=== PATIENT | female | born 1965 | race Caucasian/White ===

== ENCOUNTER → 2017-07-26 | Outpatient (CLI) | payer BC ==
--- NOTE | 2017-07-28 07:07 | MM ---
Reason for exam: screening (asymptomatic). Last mammogram was performed 3 years and 4 months ago. History: Taking hormonal contraceptives for 7 years 3 months beginning at age 41. Physical Findings: A clinical breast exam by your physician is recommended on an annual basis and results should be correlated with mammographic findings. MG Screening Mammo w CAD Bilateral CC and MLO view(s) were taken. Prior study comparison: March 26, 2014, bilateral MG screening mammo w CAD. March 08, 2011, bilateral digital screening mammo w/CAD. There are scattered fibroglandular densities. No significant changes when compared with prior studies. ASSESSMENT: Benign, BI-RAD 2 RECOMMENDATION: Routine screening mammogram of both breasts in 1 year.
== END | disposition home or self-care (01) ==
LOC: RADMAMWWP 16:22
PROVIDERS: ATTEND Obstetrics & Gynecology
DX: Z12.31 Encounter for screening mammogram for malignant neoplasm of breast (principal)
CPT/HCPCS: 77067

== ENCOUNTER → 2021-03-01 | Outpatient (CLI) | payer BC ==
--- NOTE | 2021-03-03 09:31 | MM ---
Reason for exam: screening (asymptomatic). Last mammogram was performed 3 years and 7 months ago. History: Taking hormonal contraceptives for 7 years 3 months beginning at age 41. Physical Findings: A clinical breast exam by your physician is recommended on an annual basis and results should be correlated with mammographic findings. MG Screening Mammo w CAD Bilateral CC and MLO view(s) were taken. Prior study comparison: July 26, 2017, bilateral MG screening mammo w CAD. March 26, 2014, bilateral MG screening mammo w CAD. There are scattered fibroglandular densities. No significant changes when compared with prior studies. ASSESSMENT: Negative, BI-RAD 1 RECOMMENDATION: Routine screening mammogram of both breasts in 1 year.
== END | disposition home or self-care (01) ==
LOC: RADMAMWWP 15:48
PROVIDERS: ATTEND Obstetrics & Gynecology
DX: Z12.31 Encounter for screening mammogram for malignant neoplasm of breast (principal)
CPT/HCPCS: 77067

== ENCOUNTER → 2024-09-10 | Outpatient (CLI) | payer BC ==
--- NOTE | 2024-09-10 08:46 | MM ---
Reason for Exam: Screening (asymptomatic). Last mammogram was performed 3 year(s) and 6 month(s) ago. Patient History: Menarche at age 12. First Full-Term at age 25. Postmenopausal. Hormonal Contraceptives, starting at age 41 for 7 years, 3 months. Risk Values: Charlotte 5 year model risk: 1.5%. NCI Lifetime model risk: 8.3%. Prior Study Comparison: 03/26/2014 Bilateral Screening Mammogram, MERGED WITH [facility]. 07/26/2017 Bilateral Screening Mammogram, MERGED WITH [facility]. 03/01/2021 Bilateral Screening Mammogram, MERGED WITH [facility]. Tissue Density: The breasts are heterogeneously dense, which may obscure small masses. Findings: Analyzed By CAD. There is no suspicious group of microcalcifications or new suspicious mass in either breast. Overall Assessment: Benign, BI-RAD 2 Management: Screening Mammogram of both breasts in 1 year. . Patient should continue monthly self-breast exams. A clinical breast exam by your physician is recommended on an annual basis. This exam should not preclude additional follow-up of suspicious palpable abnormalities. Note on Charlotte scores and lifetime risk: 1. A Charlotte score greater than 3% is considered moderate risk. If this is the case, consider specialist referral to assess eligibility for a risk reducing agent. 2. If overall lifetime risk for the development of breast cancer is 20% or higher, the patient may qualify for future screening with alternating mammogram and breast MRI. [facility], , 09/10/2024 8:43 AM. Electronically signed and approved by: Mynor Gavin M.D. Radiologis
--- NOTE | 2024-09-10 10:04 | BD ---
EXAMINATION TYPE: Axial Bone Density DATE OF EXAM: 09/10/2024 CLINICAL HISTORY: 58 years old Female. ICD-10 CODE: Z78.0ASYMPTOMATIC MENOPAUSAL STA , Additional Hi story: Height: 63.8 Weight: 212 FRAX RISK QUESTIONS: 3. Menopause before 45: no at 54 RISK FACTORS HISTORY OF: MEDICATIONS: multivitamin, EXAM MEASUREMENTS: Bone mineral densitometry was performed using the [employer] System. Bone mineral density as measured about the Lumbar spine is: ----- L1-L4(G/cm2): 1.331 T Score Values are as follows: ----- L1: 1.0 ----- L2: 1.5 ----- L3: 0.9 ----- L4: 1.4 ----- L1-L4: 1.3 Z Score Values are as follows: ----- L1: 1.1 ----- L2: 1.7 ----- L3: 1.0 ----- L4: 1.6 ----- L1-L4: 1.4 Bone mineral density is a baseline study for her. Bone mineral density about the R hip (g/cm2): 1.069 Bone mineral density about the L hip (g/cm2): 1.076 T Score values are as follows: -----R Neck: -0.4 -----L Neck: -0.7 -----R Total: 0.5 -----L Total: 0.5 Z Score values are as follows: -----R Neck: 0.1 -----L Neck: -0.2 -----R Total: 0.6 -----L Total: 0.7 Bone mineral density is a baseline study. FRAX%s: The graph provided illustrates a 6.2% chance for a major osteoporotic fx and a 0.2% chance fo r the hips probability for fx in 10 years time. IMPRESSION: Normal (Values between +1 and -1 indicate normal bone mass). Consider repeating this study in 5 year s or sooner if there is some new clinical indication. NOTE: T-SCORE=SD OF THE YOUNG ADULT MEAN. [facility], , 09/10/2024 10:02 AM
== END | disposition home or self-care (01) ==
LOC: RADBDWWP 07:49
PROVIDERS: ATTEND Obstetrics & Gynecology
DX: Z12.31 Encounter for screening mammogram for malignant neoplasm of breast (principal); Z78.0 Asymptomatic menopausal state; R92.333 Mammographic heterogeneous density, bilateral breasts; Z92.0 Personal history of contraception
CPT/HCPCS: 77067; 77080